=== PATIENT | female | born 1935 | race Caucasian/White ===

== ENCOUNTER 2017-09-04 09:59 | Outpatient (CLI) | payer OTHER ==
[~2017-09-04 09:59] MED LIST: COZAAR100 MG; SYNTHROID100 MCG; ZANTAC300 MG
== END 2017-09-04 10:30 | disposition home or self-care (01) ==
LOC: TOM 09:59
DX: I48.0 Paroxysmal atrial fibrillation (principal); A31.0 Pulmonary mycobacterial infection

== ENCOUNTER 2017-10-22 10:37 | Emergency (ER) | payer OTHER ==
[~2017-10-22] VITALS: Ht 154.9 cm; Wt 63.5 kg
[2017-10-22] MEDS ORDERED: XOPENEX0.63 MG/3 IH (12:14)
== END 2017-10-22 16:36 | disposition home or self-care (01) ==
LOC: ER 10:37
DX: R05 Cough (principal)

== ENCOUNTER 2020-07-06 13:27 | Inpatient (IN) | payer OTHER ==
[~2020-07-06] VITALS: Ht 162.6 cm; Wt 72.6 kg
[~2020-07-06 13:27] MED LIST changes: +XOPENEX0.63 MG/3 IH
--- NOTE | 2020-07-06 14:08 | NUR ---
PACIENTE ALERTA Y ORIENTADA. REFIERE DOLOR EN AMBAS PIERNAS, LAS MISMAS SE OBSERVAN EDEMATOSAS Y VERA. SINTOMAS PRESENTES DESDE HACE [address] AR[address]. REANNA REFERIDO DEL DR. EDWINA WHITE, EL CUAL SE LE CONSULTA A DRA. TRIVEDI. SE KOBI S/V. SE UBICA EN OBSERVACION PARA TRATAMIENTO Y EVALUACION MEDICA.
--- NOTE | 2020-07-06 16:09 | NUR ---
PT ALERTA Y ORIENTADA X3 ESFERAS, SCOT AL MOMENTO. SE LE ORIENTA SOBRE TX Y REFIERE ENTEDER. SE ERI MUESTRAS DE SERGEY CON TECNICAS ASEPTICAS Y ESTERILES PARA VANESSA MUESTRAS DE B/C X2 [id number], LUEGO SE ERI MUESTRAS DE SERGEY Y VENOPUNCION CON TECNICAS ASEPTICAS. SE ADMINISTRAN IVFLUIDS ORDENADOS. PT TOLERA TX. PT MANEJADA POR POR MS Y.HDEZ.
== END 2020-07-12 12:44 | disposition home or self-care (01) | DRG 603 ==
LOC: ER 13:27 → SEC-K 16:57 → MEDJ 16:57
PROVIDERS: ADMIT Specialist; ATTEND Specialist
PROC: B54DZZZ Ultrasonography of Bilateral Lower Extremity Veins (ICD-10-PCS; principal; 2020-07-06)
PROC: B44HZZZ Ultrasonography of Bilateral Lower Extremity Arteries (ICD-10-PCS; 2020-07-07)
DX: L03.116 Cellulitis of left lower limb (principal); E87.1 Hypo-osmolality and hyponatremia; L03.115 Cellulitis of right lower limb; I87.2 Venous insufficiency (chronic) (peripheral); I86.8 Varicose veins of other specified sites; Z20.822 Contact with and (suspected) exposure to COVID-19; Z60.4 Social exclusion and rejection

== ENCOUNTER 2020-11-23 05:41 | Day surgery (SDC) | payer OTHER ==
[~2020-11-23 05:41] MED LIST changes: +ADULT LOW DOSE81 M1 PO
== END 2020-11-23 15:15 | disposition home or self-care (01) ==
LOC: CIR.AMB 05:41
PROVIDERS: ATTEND Orthopaedic Surgery Hand Surgery
DX: S52.532A Colles' fracture of left radius, initial encounter for closed fracture (principal); Z20.822 Contact with and (suspected) exposure to COVID-19
CPT/HCPCS: 25609; 25118; 25280; C1776

== ENCOUNTER 2022-10-20 16:15 | Inpatient (IN) | payer OTHER ==
[~2022-10-20] VITALS: Ht 160 cm; Wt 36.3 kg
[2022-10-20] MEDS ORDERED: AMLODIPINE-OLM1 EAC2 (16:29)
[2022-10-20] MEDS ORDERED: MONTELUKAST SODI4 M1 (16:29)
== END 2022-11-01 12:39 | disposition home or self-care (01) | DRG 177 ==
LOC: ER 16:15 → MEDJ 22:26
PROVIDERS: ADMIT Specialist; ATTEND Specialist
PROC: BW28ZZZ Computerized Tomography (CT Scan) of Head (ICD-10-PCS; principal; 2022-10-20)
PROC: BW24ZZZ Computerized Tomography (CT Scan) of Chest and Abdomen (ICD-10-PCS; 2022-10-20)
PROC: 02HV33Z Insertion of Infusion Device into Superior Vena Cava, Percutaneous Approach (ICD-10-PCS; 2022-10-24)
PROC: B54MZZZ Ultrasonography of Right Upper Extremity Veins (ICD-10-PCS; 2022-10-30)
DX: A31.0 Pulmonary mycobacterial infection (principal); L89.153 Pressure ulcer of sacral region, stage 3; N39.0 Urinary tract infection, site not specified; J15.9 Unspecified bacterial pneumonia; R13.19 Other dysphagia; E86.0 Dehydration; L08.9 Local infection of the skin and subcutaneous tissue, unspecified; B96.89 Other specified bacterial agents as the cause of diseases classified elsewhere; E03.9 Hypothyroidism, unspecified; K21.9 Gastro-esophageal reflux disease without esophagitis; J84.10 Pulmonary fibrosis, unspecified; J44.9 Chronic obstructive pulmonary disease, unspecified

== ENCOUNTER 2022-11-27 13:05 | Inpatient (IN) | payer OTHER ==
[~2022-11-27] VITALS: Ht 160 cm; Wt 54.4 kg
[~2022-11-27 13:05] MED LIST changes: +AMLODIPINE-OLM1 EAC2; +MONTELUKAST SODI4 M1
[2022-11-27] MEDS ORDERED: SYNTHROID88 MCG PO (13:15)
[2022-11-27 15:21] LABS: HEMATOCRIT 34.6 % (36.0-45.00); HEMOGLOBIN 10.7 g/dL (12.0-15.00); MEAN CELL VOLUME 90.7 fL (80.00-100.00); MEAN CORPUSCULAR HGB CONC 30.8 g/dl (32.0-36.0); PLATELET COUNT 490 K/uL (150-450); RED BLOOD COUNT 3.82 M/uL (4.00-6.00)
[2022-11-27 15:27] LABS: RED CELL DISTRIBUTION WIDTH 21.1 % (11.5-14.5)
[2022-11-27 15:38] LABS: CREATININE SERUM 0.91 mg/dL (0.55-1.02); GFR 58.34; POTASSIUM 4.08 mEq/L (3.5-5.1)
[2022-11-28 08:18] LABS: HEMATOCRIT 33.1 % (36.0-45.00); HEMOGLOBIN 10.7 g/dL (12.0-15.00); MEAN CELL VOLUME 90.4 fL (80.00-100.00); MEAN CORPUSCULAR HEMOGLOBIN 29.2 pg (27.00-32.0); MEAN CORPUSCULAR HGB CONC 32.3 g/dl (32.0-36.0); PLATELET COUNT 460 K/uL (150-450); RED BLOOD COUNT 3.66 M/uL (4.00-6.00); RED CELL DISTRIBUTION WIDTH 21.1 % (11.5-14.5)
[2022-11-28 08:28] LABS: ERYTHROCYTE SEDIMENTATION RATE 38 mm/hr
[2022-11-28 08:31] LABS: INR 1.02; PARTIAL THROMBOPLASTIN TIME 27.9 SECONDS (22.0-34.0); PROTHROMBIN TIME 10.7 SECONDS (9.0-11.5)
[2022-11-28 08:48] LABS: BILIRUBIN TOTAL 0.48 mg/dL (0.3-1.2); CALCIUM 7.5 mg/dL (8.5-10.1); CREATININE SERUM 0.72 mg/dL (0.55-1.02); GFR 76.44; GLOBULINA 3.6 G/DL (2.4-3.5); POTASSIUM 4.56 mEq/L (3.5-5.1); TOTAL PROTEIN 5.6 gm/dL (6.4-8.2); TSH 3.81 uIU/mL (0.358-3.74)
[2022-11-28 08:53] LABS: C-REACTIVE PROTEIN 4.92 MG/DL (0.00-0.29)
[2022-11-28] MEDS ORDERED: PRE PROTEIN1 EACH (09:05)
[2022-11-28] MEDS ORDERED: VITAMIN D350 MCG (09:05)
[2022-11-28 14:39] LABS: URINE APPEARANCE Clear; URINE BILIRRUBIN Negative (NEGATIVE); URINE BLOOD Negative; URINE COLOR Yellow; URINE GLUCOSE Negative (NEGATIVE); URINE NITRATE Negative; URINE PROTEIN 30 (NEGATIVE); URINE UROBILINOGEN 0.2 E.U./dl
[2022-11-28 15:01] LABS: URINE EPITHELIAL CELLS 5.6 uL (0.0-38.8); URINE LEUKOCYTE Trace; URINE RBC 4.6 uL (0.0-20.8); URINE WBC 31.9 uL (0.0-23.2)
[2022-11-28 15:39] LABS: URINE MUCUS SCANT
[2022-11-28 15:40] LABS: URINE CRYSTALS FEW /HPF; URINE YEAST FEW /hpf
[2022-12-01 06:47] LABS: HEMATOCRIT 26.4 % (36.0-45.00); MEAN CELL VOLUME 90.2 fL (80.00-100.00); MEAN CORPUSCULAR HGB CONC 32.3 g/dl (32.0-36.0); PLATELET COUNT 367 K/uL (150-450); RED BLOOD COUNT 2.92 M/uL (4.00-6.00); RED CELL DISTRIBUTION WIDTH 21.1 % (11.5-14.5)
[2022-12-01 07:00] LABS: HEMOGLOBIN 8.5 g/dL (12.0-15.00); MEAN CORPUSCULAR HEMOGLOBIN 29.1 pg (27.00-32.0)
[2022-12-01 07:10] LABS: CALCIUM 7.3 mg/dL (8.5-10.1); CREATININE SERUM 0.66 mg/dL (0.55-1.02); GFR 84.52; POTASSIUM 4.02 mEq/L (3.5-5.1)
[2022-12-01 07:11] LABS: C-REACTIVE PROTEIN 4.33 MG/DL (0.00-0.29)
[2022-12-01 19:39] LABS: HEMATOCRIT 29.6 % (36.0-45.00); HEMOGLOBIN 9.3 g/dL (12.0-15.00); MEAN CELL VOLUME 90.6 fL (80.00-100.00); MEAN CORPUSCULAR HEMOGLOBIN 28.5 pg (27.00-32.0); MEAN CORPUSCULAR HGB CONC 31.5 g/dl (32.0-36.0); PLATELET COUNT 410 K/uL (150-450); RED BLOOD COUNT 3.27 M/uL (4.00-6.00); RED CELL DISTRIBUTION WIDTH 21.4 % (11.5-14.5)
[2022-12-03 12:26] LABS: HEMATOCRIT 38.9 % (36.0-45.00); HEMOGLOBIN 13.1 g/dL (12.0-15.00); MEAN CELL VOLUME 87.7 fL (80.00-100.00); MEAN CORPUSCULAR HEMOGLOBIN 29.5 pg (27.00-32.0); MEAN CORPUSCULAR HGB CONC 33.6 g/dl (32.0-36.0); PLATELET COUNT 342 K/uL (150-450); RED BLOOD COUNT 4.44 M/uL (4.00-6.00); RED CELL DISTRIBUTION WIDTH 19.4 % (11.5-14.5)
[2022-12-04 07:26] LABS: HEMOGLOBIN 12.2 g/dL (12.0-15.00); MEAN CELL VOLUME 87.5 fL (80.00-100.00); MEAN CORPUSCULAR HEMOGLOBIN 29.7 pg (27.00-32.0); MEAN CORPUSCULAR HGB CONC 33.9 g/dl (32.0-36.0); PLATELET COUNT 357 K/uL (150-450); RED BLOOD COUNT 4.12 M/uL (4.00-6.00); RED CELL DISTRIBUTION WIDTH 19.6 % (11.5-14.5)
[2022-12-04 08:51] LABS: CALCIUM 7.6 mg/dL (8.5-10.1); CREATININE SERUM 0.78 mg/dL (0.55-1.02); GFR 69.7; MAGNESIUM 1.8 mg/dL (1.8-2.4); POTASSIUM 3.52 mEq/L (3.5-5.1)
[2022-12-04 09:19] LABS: PHOSPHOROUS 1.9 mg/dL (2.5-4.9)
[2022-12-05 07:57] LABS: ALBUMIN 1.9 gm/dL (3.4-5.0); BILIRUBIN TOTAL 0.37 mg/dL (0.3-1.2); BILIRUBIN,CONJUGATED 0.13 mg/dL (0.0-0.2); BILIRUBIN,UNCONJUGATED 0.24 mg/dL (0.0-0.6); TOTAL PROTEIN 4.9 gm/dL (6.4-8.2)
[2022-12-06 09:15] LABS: CALCIUM 7.8 mg/dL (8.5-10.1); CREATININE SERUM 0.89 mg/dL (0.55-1.02); GFR 59.86; POTASSIUM 4.12 mEq/L (3.5-5.1)
[2022-12-08 07:38] LABS: HEMATOCRIT 33.8 % (36.0-45.00); HEMOGLOBIN 11.4 g/dL (12.0-15.00); MEAN CELL VOLUME 88.9 fL (80.00-100.00); MEAN CORPUSCULAR HEMOGLOBIN 30.1 pg (27.00-32.0); MEAN CORPUSCULAR HGB CONC 33.8 g/dl (32.0-36.0); PLATELET COUNT 247 K/uL (150-450); RED CELL DISTRIBUTION WIDTH 19.7 % (11.5-14.5)
[2022-12-11 07:11] LABS: HEMATOCRIT 35.9 % (36.0-45.00); HEMOGLOBIN 11.6 g/dL (12.0-15.00); MEAN CELL VOLUME 90.9 fL (80.00-100.00); MEAN CORPUSCULAR HEMOGLOBIN 29.4 pg (27.00-32.0); MEAN CORPUSCULAR HGB CONC 32.4 g/dl (32.0-36.0); PLATELET COUNT 257 K/uL (150-450); RED BLOOD COUNT 3.95 M/uL (4.00-6.00); RED CELL DISTRIBUTION WIDTH 19.8 % (11.5-14.5)
[2022-12-12 07:28] LABS: ALBUMIN 2.2 gm/dL (3.4-5.0); BILIRUBIN TOTAL 0.43 mg/dL (0.3-1.2); CALCIUM 7.8 mg/dL (8.5-10.1); CREATININE SERUM 0.73 mg/dL (0.55-1.02); GFR 75.24; GLOBULINA 2.7 G/DL (2.4-3.5); POTASSIUM 3.45 mEq/L (3.5-5.1); TOTAL PROTEIN 4.9 gm/dL (6.4-8.2)
[2022-12-15 08:07] LABS: HEMATOCRIT 36.2 % (36.0-45.00); MEAN CELL VOLUME 89.3 fL (80.00-100.00); MEAN CORPUSCULAR HEMOGLOBIN 29.6 pg (27.00-32.0); MEAN CORPUSCULAR HGB CONC 33.2 g/dl (32.0-36.0); PLATELET COUNT 267 K/uL (150-450); RED BLOOD COUNT 4.06 M/uL (4.00-6.00); RED CELL DISTRIBUTION WIDTH 19.9 % (11.5-14.5)
[2022-12-15 08:27] LABS: CALCIUM 8.1 mg/dL (8.5-10.1); CREATININE SERUM 0.7 mg/dL (0.55-1.02); GFR 78.97; POTASSIUM 3.18 mEq/L (3.5-5.1)
[2022-12-18 08:10] LABS: HEMATOCRIT 36.4 % (36.0-45.00); MEAN CELL VOLUME 90.7 fL (80.00-100.00); MEAN CORPUSCULAR HEMOGLOBIN 29.9 pg (27.00-32.0); MEAN CORPUSCULAR HGB CONC 32.9 g/dl (32.0-36.0); PLATELET COUNT 253 K/uL (150-450); RED BLOOD COUNT 4.01 M/uL (4.00-6.00); RED CELL DISTRIBUTION WIDTH 19.9 % (11.5-14.5)
[2022-12-18 08:40] LABS: ALBUMIN 2.1 gm/dL (3.4-5.0); BILIRUBIN TOTAL 0.39 mg/dL (0.3-1.2); CALCIUM 8.1 mg/dL (8.5-10.1); CREATININE SERUM 0.73 mg/dL (0.55-1.02); GFR 75.24; GLOBULINA 2.6 G/DL (2.4-3.5); POTASSIUM 3.6 mEq/L (3.5-5.1); TOTAL PROTEIN 4.7 gm/dL (6.4-8.2)
[2022-12-18 08:42] LABS: ERYTHROCYTE SEDIMENTATION RATE 8 mm/hr
[2022-12-18 08:51] LABS: C-REACTIVE PROTEIN 0.3 MG/DL (0.00-0.29)
[2022-12-19 19:38] LABS: PLEURAL FLUID APPEARANCE HAZY; PLEURAL FLUID COLOR YELLOW
[2022-12-19 19:47] LABS: TP PLEURAL FLUID 0.9 g/dl
[2022-12-19 20:43] LABS: MONONUCLEAR 96 %; POLYMORPHONUCLEAR 4 %
[2022-12-20 06:21] LABS: ABG PH 7.271 (7.35-7.45); ABG PO2 84.1 mmHg (80-100); ABG pCO2 47.2 mmHg (35-45); BASE EXCESS -5.8 mmol/l; BICARBONATE 21.2 mmol/l (23-25); SaO2 94.2 %; Tco2 22.7 mmol/l
[2022-12-20 06:23] LABS: allen test SATISFACTORY; o2 100 %; puncture site RADIAL RIGHT
== END 2022-12-20 22:29 | disposition expired | DRG 853 ==
LOC: ER 13:05 → SEC-K 17:35 → MEDJ 17:35 → SEC-K 17:38 → MEDJ 19:29
PROVIDERS: Emergency Medicine; Internal Medicine; Internal Medicine Geriatric Medicine; Internal Medicine Infectious Disease; Radiology Vascular & Interventional Radiology; ADMIT Specialist; ATTEND Specialist
PROC: 0JD70ZZ Extraction of Back Subcutaneous Tissue and Fascia, Open Approach (ICD-10-PCS; principal; 2022-11-28)
PROC: 02HV33Z Insertion of Infusion Device into Superior Vena Cava, Percutaneous Approach (ICD-10-PCS; 2022-11-28)
PROC: BR39ZZZ Magnetic Resonance Imaging (MRI) of Lumbar Spine (ICD-10-PCS; 2022-11-29)
PROC: B24BZZZ Ultrasonography of Heart with Aorta (ICD-10-PCS; 2022-11-29)
PROC: 30233N1 Transfusion of Nonautologous Red Blood Cells into Peripheral Vein, Percutaneous Approach (ICD-10-PCS; 2022-12-02)
PROC: 4A12X4Z Monitoring of Cardiac Electrical Activity, External Approach (ICD-10-PCS; 2022-12-05)
PROC: 0JB70ZZ Excision of Back Subcutaneous Tissue and Fascia, Open Approach (ICD-10-PCS; 2022-12-06)
PROC: B54MZZZ Ultrasonography of Right Upper Extremity Veins (ICD-10-PCS; 2022-12-13)
PROC: 0W9B3ZZ Drainage of Left Pleural Cavity, Percutaneous Approach (ICD-10-PCS; 2022-12-19)
PROC: 0JD70ZZ Extraction of Back Subcutaneous Tissue and Fascia, Open Approach (ICD-10-PCS; 2022-12-20)
DX: A41.9 Sepsis, unspecified organism (principal); L89.154 Pressure ulcer of sacral region, stage 4; M46.28 Osteomyelitis of vertebra, sacral and sacrococcygeal region; J90 Pleural effusion, not elsewhere classified; R64 Cachexia; A31.0 Pulmonary mycobacterial infection; L08.9 Local infection of the skin and subcutaneous tissue, unspecified; B96.4 Proteus (mirabilis) (morganii) as the cause of diseases classified elsewhere; B95.2 Enterococcus as the cause of diseases classified elsewhere; B96.1 Klebsiella pneumoniae [K. pneumoniae] as the cause of diseases classified elsewhere; D64.9 Anemia, unspecified; E03.9 Hypothyroidism, unspecified; J84.10 Pulmonary fibrosis, unspecified; J44.9 Chronic obstructive pulmonary disease, unspecified; Z20.822 Contact with and (suspected) exposure to COVID-19; I25.10 Atherosclerotic heart disease of native coronary artery without angina pectoris
CPT/HCPCS: 72148